=== PATIENT | male | born 1985 | race Caucasian/White ===

== ENCOUNTER 2016-11-17 23:07 | Inpatient (IN) | payer OTHER ==
[~2016-11-17] VITALS: Ht 175.3 cm; Wt 72.8 kg
[~2016-11-17 23:07] MED LIST: IBUP800T28 PO
[2016-11-17 23:29] VITALS: BP 102/64; PULSE 133; RESP 20; O2SAT 100
--- NOTE | 2016-11-17 23:40 | ED.REPORT ---
HPI-General Illness Date of Service Nov 17, 2016 ED Provider: Dr. Kristofer Swanson M.D. A 30 year old male with a history of abscess, cellulitis, and IV heroin use presents to the ED with an abscess to his right hand onset more than a week ago. Today the patient split open the abscess by accidentally hitting his hand against a couch, draining a large amount of pus. The patient's right hand is now swollen and erythematous. He admits to injecting heroin in the affected region just prior to onset of the symptoms. The patient also reports weakness, fever, and chills. He denies nausea, vomiting, or other wounds. Nursing Notes Stated Complaint: R HAND ABSCESS Chief Complaint: Skin Rash/Abscess Nursing Notes Reviewed: Yes Allergies: Coded Allergies: No Known Allergies (Verified Allergy, Unknown, 08/25/16) Scheduled PRN Ibuprofen (Ibuprofen) 800 Mg Tablet 800 MG PO QID PRN PRN For Pain General Time Seen by MD: 23:40 Chief Complaint Other (Abscess) Hx Obtained From: Patient Arrived By: Walk-in Sudden in Onset?: Yes Onset Occurred: More than a week ago... Symptom Duration: Since onset Location: : Hand right Quality: Painful Severity: Current: Moderate Severity: Maximum: Moderate Associated with: Reports: Fever, Denies: Nausea, Vomiting Pertinent Negative: Relieved by nothing Context Related History: Reports Drug use/abuse suspected Recent Healthcare: No recent doctor visit Past Medical History Past Medical History Abscess Cellulitis Past Surgical History Negative Smoking History Current Every Day Smoker Social History Alcohol Use: "Social" Drug Use: IV drugs (Heroin), THC Other Social History: Good social support Ambulatory Status Independent Review of Systems + Right hand abscess, right hand erythema Full Review of Systems Constitutional: Reports: Chills, Fever (37.6 in ED), Weakness - generalized Respiratory: Denies: Non-productive cough, Shortness of breath GI: Denies: Nausea, Vomiting Musculoskeletal: Reports: Extremity pain (Right hand), Extremity swelling ( Right hand) Complete sys rev & neg: except as marked. Physical Exam Vital Signs Vital Signs Date Time Temp Pulse Resp B/P Pulse Ox O2 Delivery O2 Flow Rate FiO2 11/17/16 23:29 37.6 133 20 102/64 100 Room Air Initial VS: Reviewed Head / Eyes: Atraumatic, Normocephalic ENT: Conjunctiva normal, No scleral icterus Neurologic: Alert, Oriented, Nonfocal Psychiatric: Mood/affect normal, Behavior normal, Normal thought content General/Constitutional: Awake, Alert, No acute distress Behavior: Positive: Tearful Respiratory / Chest: Breath sounds NL, Breath sounds = bilat, No respiratory distress Cardiovascular: Regular rhythm, Heart sounds NL, No murmurs Heart Rate / Rhythm: Positive: Tachycardia Right Hand: Positive: Erythema present, Swelling present... Skin: Warm, Dry Abscess Notes: Abscess on dorsal aspect of right hand with surrounding erythema and 1cm circular ulcer draining purulent and bloody material Markings to arms consistent with IV drug use Interpretation & Diagnostics Lab Results Interpretation Result Diagram: 11/18/16 0008 11/18/16 000 Test 11/17/16 00:08 11/18/16 00:08 Prothrombin Time 11.9sec (8.1-12.5) Prothromb Time International Ratio 1.11ratio Activated Partial Thromboplast Time 37.1sec (22.8-33.0) White Blood Count 25.5th/mm3 (3.8-10.1) Red Blood Count 4.93mil/mm3 (4.40-5.80) Hemoglobin 13.9g/dL (13.8-17.2) Hematocrit 40.7% (41.0-50.0) Mean Corpuscular Volume 82.6fL (81-100) Mean Corpuscular Hemoglobin 28.2pg (27.0-35.0) Mean Corpuscular Hemoglobin Concent 34.2% (32.0-37.0) Red Cell Distribution Width 14.3% (12.3-15.4) Platelet Count 225bil/L (150-400) Neutrophils (%) (Auto) 91.7% (40-74) Lymphocytes (%) (Auto) 2.9% (14-46) Monocytes (%) (Auto) 3.1% (4-12) Eosinophils (%) (Auto) 1.6% (0-5) Basophils (%) (Auto) 0.2% (0-3) Erythrocyte Sedimentation Rate 9mm/hr (0-15) Sodium Level 134mEq/L (134-144) Potassium Level 4.5mEq/L (3.5-5.2) Chloride Level 96mEq/L (97-108) Carbon Dioxide Level 23mmol/L (18-29) Blood Urea Nitrogen 14mg/dL (6-20) Creatinine 0.66mg/dL (0.76-1.27) Estimat Glomerular Filtration Rate 152mL/min (>59) Glucose Level 128mg/dL (60-99) Calcium Level 9.5mg/dL (8.5-10.1) Phosphorus Level 2.9mg/dL (2.5-4.9) Magnesium Level 1.6mg/dL (1.6-2.6) Total Bilirubin 0.7mg/dL (0.0-1.2) Aspartate Amino Transf (AST/SGOT) 28U/L (0-50) Alanine Aminotransferase (ALT/SGPT) 52U/L (0-44) Alkaline Phosphatase 92U/L (25-150) Troponin T 0.010ug/L (0.0-0.011) Pro-B-Type Natriuretic Peptide 383.1pg/mL (0-86) Total Protein 7.2g/dL (6.4-8.4) Albumin 3.7g/dL (3.4-5.0) Lipase 28U/L (13-60) Procalcitonin 0.65ng/mL (0.00-0.08) X-Ray Chest Interpretation Chest Xray Interpretation: Nothing acute View: Portable, 1 view Interpretation / Wet Read by: Wet read ED physician Re-Eval/Medical Decision Med Decision/Clinical Course 30-year-old heroin addict presents with tachycardia erythema or purulent discharge from abscess on his hands. He has sepsis by criteria. Cultures obtained and skin spectrum antibiotics begun. Admitted now for surgical evaluation this morning and ongoing antibiotics. Time of Eval: 00:00 Patient Status: Condition improved Re-Evaluation/Progress Note: Discussed with patient lab results, diagnosis, and plan for admit. Patient agrees with plan for care and all questions were addressed. Consultation : Referral / Consult Name: Martin Everett MD Consulted With: Hospitalist Call Returned at: 01:44 Dump Attendant: Agrees with eval, Agrees with plan, Accepts admit Discharge & Departure Shift Change Sign-Out Response to Therapy: Improved Primary Impression: Abscess of right hand Additional Impressions: Sepsis Sepsis type: sepsis due to unspecified organism Qualified Code: A41.9 - Sepsis, unspecified organism Intravenous drug abuse Disposition: ADMITTED TO HOSPITAL Discharge Condition All VS Reviewed: Yes Condition: Improved Referrals: NOPCP (PCP) Karanibshereen Attestation Portions of this note were transcribed by Nena Terry. I, Dr. Swanson, personally performed the history, physical exam, and medical decision-making; I reviewed and confirmed the accuracy of the information in the transcribed note. Signed by: Ronaldo Hastings, 11/18/2016, 04:30 Kristofer Swanson MD Nov 17, 2016 23:40 NENA TERRY Nov 18, 2016 01:02
[2016-11-18] VITALS (12 sets, daily range): BP systolic 94–117; BP diastolic 49–69; PULSE 98–120; RESP 14–22; O2SAT 96–100
[2016-11-18 00:22] LABS: Mean Corpuscular Volume 82.6 fL (81-100)
[2016-11-18 00:24] LABS: BASOPHILS % (AUTO) 0.2 % (0-3); EOSINOPHILS % (AUTO) 1.6 % (0-5); MONOCYTES % (AUTO) 3.1 % (4-12); Mean Corpuscular Hemoglobin 28.2 pg (27.0-35.0); NEUTROPHILS % (AUTO) 91.7 % (40-74); Platelet Count 225 bil/L (150-400)
[2016-11-18 00:37] LABS: INR 1.11 ratio
[2016-11-18 00:43] LABS: ERYTHROCYTE SEDIMENTATION RATE 9 mm/hr (0-15)
[2016-11-18] MEDS ORDERED: Piperacillin-Tazo 3.375 Gm Inj 3.375 GM in Dextrose 5% Minibag Plus 50 ML IV ONE (00:55)
[2016-11-18] MEDS ORDERED: oxyCODONE-Acetamin 5-325 mg Tablet PO ONE (01:00)
[2016-11-18 01:08] LABS: Magnesium 1.6 mg/dL (1.6-2.6); Phosphorus 2.9 mg/dL (2.5-4.9)
[2016-11-18] MEDS ORDERED: Vancomycin Inj 1,250 MG in 0.9% Sodium Chloride 250 ML IV ONE (01:12)
[2016-11-18] MEDS ORDERED: 0.9% Sodium Chloride 1,000 ML IV SCH (03:08)
[2016-11-18] MEDS ORDERED: Polyethylene Glycol (PEG) 17 Gm Powder PO PRN (03:10)
[2016-11-18] MEDS ORDERED: Ondansetron 2 mg/mL 2 mL Inj IVPUSH PRN (03:10)
[2016-11-18] MEDS ORDERED: HYDROmorphone 0.5 mg/0.5 mL iSecure Syringe IVPUSH PRN (03:10)
[2016-11-18] MEDS ORDERED: Alum-Mag Hydrox-Simeth 30 mL Suspension PO PRN (03:10)
--- NOTE | 2016-11-18 03:43 | PCM.CONPHA ---
Subjective Date of Service: Nov 18, 2016 Reason for Pharmacy Consult: Vancomycin Dosing Objective Vital Signs Date Time Temp Pulse Resp B/P Pulse Ox O2 Delivery O2 Flow Rate FiO2 11/17/16 23:29 37.6 133 20 102/64 100 Room Air Weight (Kilograms): 68 Height (Feet): 5 Height (Inches): 9 Test 11/17/16 00:08 11/18/16 00:08 Prothrombin Time 11.9sec (8.1-12.5) Prothromb Time International Ratio 1.11ratio Activated Partial Thromboplast Time 37.1sec (22.8-33.0) White Blood Count 25.5th/mm3 (3.8-10.1) Red Blood Count 4.93mil/mm3 (4.40-5.80) Hemoglobin 13.9g/dL (13.8-17.2) Hematocrit 40.7% (41.0-50.0) Mean Corpuscular Volume 82.6fL (81-100) Mean Corpuscular Hemoglobin 28.2pg (27.0-35.0) Mean Corpuscular Hemoglobin Concent 34.2% (32.0-37.0) Red Cell Distribution Width 14.3% (12.3-15.4) Platelet Count 225bil/L (150-400) Neutrophils (%) (Auto) 91.7% (40-74) Lymphocytes (%) (Auto) 2.9% (14-46) Monocytes (%) (Auto) 3.1% (4-12) Eosinophils (%) (Auto) 1.6% (0-5) Basophils (%) (Auto) 0.2% (0-3) Erythrocyte Sedimentation Rate 9mm/hr (0-15) Sodium Level 134mEq/L (134-144) Potassium Level 4.5mEq/L (3.5-5.2) Chloride Level 96mEq/L (97-108) Carbon Dioxide Level 23mmol/L (18-29) Blood Urea Nitrogen 14mg/dL (6-20) Creatinine 0.66mg/dL (0.76-1.27) Estimat Glomerular Filtration Rate 152mL/min (>59) Glucose Level 128mg/dL (60-99) Lactic Acid Level 2.7mmol/L (0.4-2.0) Calcium Level 9.5mg/dL (8.5-10.1) Phosphorus Level 2.9mg/dL (2.5-4.9) Magnesium Level 1.6mg/dL (1.6-2.6) Total Bilirubin 0.7mg/dL (0.0-1.2) Aspartate Amino Transf (AST/SGOT) 28U/L (0-50) Alanine Aminotransferase (ALT/SGPT) 52U/L (0-44) Alkaline Phosphatase 92U/L (25-150) Pro-B-Type Natriuretic Peptide 383.1pg/mL (0-86) Total Protein 7.2g/dL (6.4-8.4) Albumin 3.7g/dL (3.4-5.0) Lipase 28U/L (13-60) Procalcitonin 0.65ng/mL (0.00-0.08) Assessment/Plan Assessment/Plan Vancomycin dosing per pharmacy Indication: abscess, sepsis, IVDU Trough goal: 15-20 Labs: SCr: 0.66 (CrCl > 150 mL/min) Patient received vancomycin 1250 mg x1 in the ED. Give vancomycin 1500 mg Q8H. Will time 2nd dose of vancomycin to start ~5 hours after 1st dose to act as "loading dose". Vancomycin trough has been ordered for 11/18/16 at 2230. Pharmacy to continue to monitor daily and dose vancomycin. Thank you, Jeremie Bryan Pharmacist Jeremie Bryan Nov 18, 2016 03:43
[2016-11-18 04:10] LABS: APPEARANCE,URINE CLEAR (CLEAR,HAZY); COLOR,URINE DARK YELLOW (YELLOW); OCCULT BLOOD,URINE NEGATIVE (NEGATIVE); PH,URINE 5.5 (5.0-8.0); UROBILINOGEN,URINE NORMAL (NORMAL)
[2016-11-18] MEDS: 0.9% Sodium Chloride 1,000 ML IV SCH ×3 (04:10→22:00)
--- NOTE | 2016-11-18 04:47 | PCM.HPMED ---
Subjective Date of Service Nov 18, 2016 Primary Provider: Admitting Physician: Martin Everett MD Primary Care Physician: D[place]ne Attending Physician: Martin Everett MD Admit Status: From the Emergency Department Chief Complaint: Right hand abscess History of Present Illness: 30-year-old male patient with a history of IV drug abuse presented to the ER with complaint of right hand abscess for the past 1 week. Patient reports that one week ago he injected heroin into his right hand, and that soon after he noticed an abscess. He states that he bumped his hand against a table and the abscess broke open with copious amounts of purulent discharge. Patient reports that the pain and redness have been worsening since onset. Patient denies any other areas of abscess or infection. Patient reports he has been experiencing fevers, chills, diaphoresis. Patient denies any nausea, vomiting, diarrhea. Patient states that he last used heroin at 10 AM on Wednesday morning. Patient reports that he has a history of abscesses secondary to his IV drug use, as well as cellulitis. Patient denies skin popping but does report that he occasionally licks the needle prior to injecting heroin. In the ER patient had a temperature 37.6, pulse 133 ,respiratory rate 20 ,blood pressure 102/64 , pulse [id number] room air Review of Systems: A comprehensive review of systems was conducted with the patient and found to be negative except as above in the History of Present Illness. Allergies Coded Allergies: No Known Allergies (Verified Allergy, Unknown, 08/25/16) Home Medications Reports none PMH Substance abuse Surgical History Reports none Family History Reports none Social History Hx Alcohol Use: Yes Hx Substance Use: Yes (IV heroin) Hx Tobacco Use: Yes (pack daily) Smoking Status: Current Every Day Smoker Exam Vital Signs Vital Sign - Last Date Time Temp Pulse Resp B/P Pulse Ox O2 Delivery O2 Flow Rate FiO2 11/18/16 04:04 36.7 120 14 110/64 97 Room Air Intake and Output 11/17/16 11/17/16 11/18/16 Cumulative From/Thru 15:00 23:00 07:00 11/17/16 23:29 - 11/18/16 04:13 Intake Total 2300 ml 2300 ml Balance 2300 ml 2300 ml Intake IV Total 2300 ml 2300 ml Exam General: Somnolent. Uncomfortable.Well-developed, well-nourished. Poor hygiene HEENT: Normocephalic, atraumatic. External ears without defect. Pupils equal, round, and reactive to light and accommodation. Moist conjunctivae. Oropharynx with moist mucosa. Neck: Supple with full range of motion.No lymphadenopathy Cardiovascular: Systolic murmur auscultated,Tachycardic, regular rhythm, no rubs , or gallops appreciated Pulmonary: Clear to auscultation bilaterally with no crackles, wheezes, or rhonchi. Normal respiratory effort with no use of accessory muscles. Abdomen: Bowel tones present. Soft, nontender, nondistended. Extremities: Right hand with the area of erythema, edema. Left hand also with some edema. Evidence of previous abscesses wounds along upper extremities in various stages of healing. Fingernails covered in dirt. Skin: Slightly diaphoretic Psychiatric: Patient is very somnolent and responds only to some questions .Alert and oriented to person, place, and time. Lab and Diagnostics Result Diagram: 11/18/16711/18/167 X-Rays, CTs and MRIs Chest x-ray-no formal radiology report available Assessment & Plan 30-year-old male patient with a history of IV drug abuse presented with acute sepsis secondary to right hand abscess. Acute sepsis secondary to right hand abscess, present on admission, ongoing -Patient meets criteria with temperature 37.6, heart rate 133, white count 25.5 -Treatment as below Acute soft tissue infection of the right hand secondary to abscess, present on admission, ongoing -Patient has soft tissue infection secondary to puncture wound from IV drug abuse. -In ER patient started on vancomycin and Zosyn, we will continue with these medications -Patient has leukocytosis 25.5, with neutrophils 91.7% -Patient has a lactic acid of 2.7, we will trend his every 2 hours until normalized -IVF NS 125mls/hr -Pro calcitonin 0.65 -Pain medication available -We will consult placed for evaluation of right hand wound -Blood cultures pending -MRSA screen pending -Consider echo given concern for endocarditis with systolic murmur auscultated and history of IV drug abuse Substance abuse, present on admission, ongoing -Patient reports history of IV drug abuse, heroin -We will treat patient's symptoms of withdrawal as they appear -Social work referral recommended to assist patient in getting in touch with resources for his substance abuse -Hepatitis C and HIV testing ordered Tobacco use disorder present on admission, ongoing -Nicotine patch made available to the patient -Discussed smoking cessation with patient Pain Evaluation: Adequate Pain Control VTE Prophylaxis: Sub-Q Heparin (Unfractionated) Resuscitation Status: CPR: Attempt Resuscitation Attending Statement The patient was seen and examined together with Dr. Oh on 11/18 and I agree with the history, exam and plan as outlined in the note above. Suha Oh DO Nov 18, 2016 04:47 Martin Everett MD Nov 18, 2016 19:43
--- NOTE | 2016-11-18 06:39 | NUR ---
ADMIT Pt arrived on unit #[id number] from ED via stretcher with all personal belongings at apprx 0400. Transferred self to bed. VSS. Tele: SinusTach 100-120's. Generalized pain 12/04. Oriented to unit, hospital policy and call light. Right hand abscess bandaged in ED, C/D/I. Home medication list completed. No known allergies. Bed locked, low position. Call light within reach. Pleasant and cooperative with care.
[2016-11-18] MEDS: Vancomycin Inj 1,500 MG in 0.9% Sodium Chloride 500 ML IV SCH ×2 (07:31→15:23)
[2016-11-18] MEDS: Vancomycin Dose per Pharmacist XX SCH (08:30)
[2016-11-18] MEDS: Sodium Chloride LOK Flush 10 mL Syringe IVFLUSH SCH ×2 (09:00→18:14)
[2016-11-18] MEDS: Heparin 5,000 Unit/mL Inj SUBQ SCH ×2 (09:01→17:21)
--- NOTE | 2016-11-18 10:01 | DRSVH ---
PROCEDURE: X-RAY CHEST ONE VIEW, PORTABLE ([id number]) INDICATIONS: fever, tachycardia TECHNIQUE: One view of the chest was acquired. COMPARISON: None. FINDINGS: Surgical changes and devices: None. Lungs and pleura: No pleural effusions or pneumothorax. Lungs are clear. Mediastinum: Mediastinal contours appear normal. Heart size is normal. Bones and chest wall: No suspicious bony lesions. Overlying soft tissues appear unremarkable. IMPRESSION: No acute cardiopulmonary disease. Dictated by: Sg Rosado [facility] Interpreted: Jose Nelson MD on 11/18/2016 at 10:00 Transcribed by: LARRY on 11/18/2016 at 10:00 Approved by: Jose Nelson M.D. on 11/18/2016 at 17:45
[2016-11-18] MEDS: Piperacillin-Tazo 3.375 Gm Inj 3.375 GM in Dextrose 5% Minibag Plus 50 ML IV SCH ×2 (11:11→19:15)
--- NOTE | 2016-11-18 11:46 | PCM.PNMED ---
Subjective Date of Service Nov 18, 2016 Subjective Mr. Shook is a 30 year-old male with a decade-long history if IV heroin use who presented to the ER with complaint of right hand swelling, pain, purulent drainage that started 4 weeks ago. This is Day 1 He arrived on the floor at 04:00 this morning. He states that he is not feeling any better, if anything, he feels worse because he states that he is in withdrawal -- he "aches all over." Denies SOB, vomiting, headache but does feel nauseous. . Exam Vital Signs Vital Sign - Last Date Time Temp Pulse Resp B/P Pulse Ox O2 Delivery O2 Flow Rate FiO2 11/18/16 10:49 100 11/18/16 09:11 37.1 16 104/63 96 Room Air Intake and Output 11/17/16 11/17/16 11/18/16 Cumulative From/Thru 15:00 23:00 07:00 11/17/16 23:29 - 11/18/16 06:45 Intake Total 2300 ml 2300 ml Output Total 450 ml 450 ml Balance 1850 ml 1850 ml Intake Oral 0 ml 0 ml IV Total 2300 ml 2300 ml Output Urine Total 450 ml 450 ml # Bowel Movements 0 0 Exam General: alert, appears ill Eyes: EOMI Mouth: mucous membranes moist/pink Neck: supple, no thyromegaly Chest & Lungs: clear to auscultation, no adventitious breath sounds, no crackles , no wheeze Cardiovascular: Grade I diastolic murmur left sternal base Pulses: dorsalis Pedi (present and equal) Abdomen: soft, normoactive bowel tones Musculoskeletal: Right hand is erythematous, edematous, tender to palpation, with a puncture on dorsum of hand between 1st and 2nd metacarpal bones which is draining purulent liquid Extremities: no clubbing Skin: No rashes Neurological: Normal speech . IVs and Medications Medications Reviewed: Medications were reviewed in detail Lab and Diagnostics Result Diagram: 11/18/16711/18/167 X-Rays, CTs and MRIs Date of Service: 11/17/16 X-RAY CHEST ONE VIEW, PORTABLE IMPRESSION: No acute cardiopulmonary disease. Dictated by: Sg ALEMAN Interpreted: Jose Nelson MD on 11/18/2016 at 10: 00 Transcribed by: LARRY on 11/18/2016 at 10:00 Approved by: Jose Nelson M.D. on 11/18/2016 at 17:45 Date of Service: 11/18/16 X-RAY RIGHT HAND, MINIMUM THREE VIEWS IMPRESSION: 1. Dorsal soft tissue swelling and small metallic radiodense soft tissue foreign bodies involving the third and fourth digits. Dictated by: Sg Rosado RRA Interpreted: Aviva Jordan MD on 11/18/2016 at 13: 26 Transcribed by: LENA on 11/18/2016 at 13:27 Approved by: Aviva Jordan M.D. on 11/18/2016 at 16:45 . Assessment & Plan Mr. Shook is a 30 year-old male with a decade-long history if IV heroin use who presented to the ER with complaint of right hand swelling, pain, purulent drainage that started 4 weeks ago. This is Day 1 1. Acute sepsis secondary to right hand abscess, present on admission, Resolved -Patient meets criteria heart rate 133, white count 25.5 -Lactic acid of 2.7 now 1.3 -Initially IV NS at 125 ml/hr, now 80 ml/hr - Treat underlying condition - Labs ordered for am 2. Acute soft tissue infection of the right hand secondary to abscess, present on admission, ongoing -Patient has soft tissue infection secondary to puncture wound from IV drug abuse. -Patient is right-handed -In ER patient started on vancomycin and Zosyn, we will continue with these medications. Okay per Dr. Markham -Patient has leukocytosis 25.5, with neutrophils 91.7% -Patient has a lactic acid of 2.7, last was 1.3 -Pro calcitonin 0.65 -Pain medication available -Consulted Dr. Markham, plastic surgeon, who evaluated the wound and made recommendations. Appreciate his help Basically, wound to be soaked and have antibiotic ointment applied to keep from scabbing thereby preventing an abscess. Requested this from both nursing and also wound care to help. Dr. Markham will see the patient again tomorrow. -Blood cultures pending -MRSA screen pending -Echocardiogram has been completed, awaiting report -Hand x-ray showed Dorsal soft tissue swelling and small metallic radiodense soft tissue foreign bodies involving the third and fourth digits. 3. Substance abuse, present on admission, ongoing -Patient reports decade-long history of IV drug abuse, heroin -[employer]OL[employer] PROFESSIONAL and IV dilaudid for dressing changes -Social work referral recommended to assist patient in getting in touch with resources for his substance abuse -Hepatitis C and HIV testing pending 4. High risk medications - IV Dilaudid 5. Tobacco use disorder present on admission, ongoing -Nicotine patch available -Discussed smoking cessation with patient Expect discharge to home in 2-3 days . VTE Prophylaxis: Sub-Q Heparin (Unfractionated) Resuscitation Status: CPR: Attempt Resuscitation Attending Statement The patient was seen and examined together with Dr. Thomas on 11-18-16 and I agree with the history, exam and plan as outlined in the note above. Lenka Thomas DO Nov 18, 2016 11:46 Jaci Giles MD Nov 19, 2016 14:13
[2016-11-18] MEDS ORDERED: HYDROmorphone PCA 0.2 mg/mL 30 mL Inj IV ONE (12:48)
[2016-11-18] MEDS: HYDROmorphone PCA 0.2 mg/mL 30 mL Inj IV PRN ×2 (12:49→22:09)
--- NOTE | 2016-11-18 13:28 | DRSVH ---
PROCEDURE: X-RAY RIGHT HAND, MINIMUM THREE VIEWS ([id number]) INDICATIONS: Right hand abscess in IV heroin user TECHNIQUE: 3 views of the hand(s) acquired. COMPARISON: None. FINDINGS: Bones: No fractures or dislocations. Carpal bones are normally aligned. No suspicious bony lesions . Soft tissues: No suspicious soft tissue calcifications. Soft tissue foreign bodies involving the th ird digit adjacent to the middle phalanx and the 4 case and the patient to be base of the middle phal anx. Dorsal soft tissue swelling. IMPRESSION: 1. Dorsal soft tissue swelling and small metallic radiodense soft tissue foreign bodies involving the third and fourth digits. Dictated by: Sg ALEMAN Interpreted: Aviva Jordan MD on 11/18/2016 at 13:26 Transcribed by: LENA on 11/18/2016 at 13:27 Approved by: Aviva Jordan M.D. on 11/18/2016 at 16:45
--- NOTE | 2016-11-18 16:38 | CONS ---
[address] [address] CONSULTATION REPORT PATIENT: THERESA HARMON : 1985 MR#: [id number] ADMIT: 11/18/2016 JOB ID: [id number] DATE OF SERVICE: 11/18/2016 CONSULTING SERVICE: Hospitalist, internal medicine. BATCH FREEZER OPERATOR: Jr Markham MD, Plastic Surgery/Hand Surgery. CHIEF COMPLAINT: Right hand infection. HISTORY OF PRESENT ILLNESS: This is a 30-year-old male patient with history of IV drug injection with history of abscess and cellulitis who presented to the emergency department on November 17, 2016. The patient reported a 2-3 day history of right hand infection. This was confirmed by his father. Due to the severity of the infection, the patient was admitted for IV antibiotic therapy to the hospitalist service. I was consulted to evaluate the right hand. The patient reports that he feels about the same today as yesterday. The patient reports right hand pain. PAST MEDICAL HISTORY: IV drug abuse with history of abscess and cellulitis. PAST SURGICAL HISTORY: None. FAMILY HISTORY: Noncontributory. SOCIAL HISTORY: The patient is a smoker. The patient also admits to IV drug use. The patient also reports alcohol use. REVIEW OF SYSTEMS: Other than above negative. PHYSICAL EXAMINATION: The patient is awake and slightly somnolent. The patient reports right hand pain. Focused right hand examination reveals a wound at the dorsum of the right hand over the index finger ray, just proximal to the metacarpophalangeal joint. The wound is approximately 2-3 mm. There is a small amount of purulence. Probing of this wound reveals minimal undermining. The patient has swelling and erythema of the hand from approximately the proximal phalangeal joint down to the proximal dorsum of the hand. The patient has normoactive flexion. Passive extension did not elicit significant pain. ASSESSMENT AND PLAN: This is a patient with a right hand infection. The patient predominantly has cellulitis of this area. The patient likely had a small abscess that spontaneously drained. At this point, he is to allow the wound to continue to drain without scabbing over or clotting over. Clotting over and scabbing of the wound will likely result in an abscess. At this point I do not recommend any surgical debridement. The patient is to continue IV antibiotics. I would also recommend that the wound be soaked or to have warm compress over the wound every 6 hours. In between warm compress the wound is to be dressed with antibiotic ointment followed by a nonadherent dressing. I will continue to follow the patient as an inpatient.
--- NOTE | 2016-11-18 17:49 | NUR ---
Wound Wound evaluation order received. A 30 year old male with a history of abscess, cellulitis, and IV heroin use presents to the ED with an abscess to his right hand onset more than a week ago. Today the patient split open the abscess by accidentally hitting his hand against a couch, draining a large amount of pus. Dressing removed, small opening at the webspace of his thumb and second finger, has 70% flexion of the 2nd finger. Hand is generally swollen and erythematous. Recommend ortho consult for I&D of this abscess if necessary.
--- NOTE | 2016-11-18 17:50 | NUR ---
Behavior contract Pt's mother arrived at hospital with a security police this evening at 1740. According to mother, pt had visitors earlier and after they left, mother found what she believed to be Heroin in his belongings and called the police. Police arrived and removed a substance in a bag. Per mother, she wants to be notified when pt dc's and provided phone number (Monisha Asif [phone]) so that pt can be arrested upon discharge. Discussed with mother HIPAA and how that prevents staff from providing that information. Mother reported understanding. Spoke with pt re: behavior contract and limited visitors due to drug being found. Pt stated he did not do any drugs, he did not know that they were brought in and "they didn't mean to bring it in." Belongings locked up in closet by security, pt signed contract without issue and limited visitors sign placed at door.
--- NOTE | 2016-11-18 18:37 | NUR ---
R hand/pain Soaked R hand in warm, soapy water per MD order then wrapped with Vaseline, Telfa and a Kerlix wrap. Pt tolerated well. 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 Currently sitting up EOB, eating dinner and talking with mother. Bed in lowest, locked position and call light in reach.
[2016-11-18] MEDS ORDERED: Vancomycin Serum Trough XX ONE (22:30)
[2016-11-19] VITALS (10 sets, daily range): BP systolic 109–132; BP diastolic 62–81; PULSE 80–97; RESP 16–22; O2SAT 96–100
[2016-11-19] MEDS: Sodium Chloride LOK Flush 10 mL Syringe IVFLUSH SCH ×3 (00:30→16:30)
--- NOTE | 2016-11-19 01:26 | PCM.PHAPRO ---
Progress Date of Service: Nov 19, 2016 Right hand abscess Vancomycin dosing per pharmacy Indication: abscess, sepsis, IVDU Trough goal: 15-20 Trough on 11/18 @2230: 12.1 Trough is sub-therapeutic. Increase vancomycin to 1750 mg Q8H. Next trough scheduled for 11/20/16 @0100. Pharmacy to continue to monitor and dose vancomycin. Thank you, Jeremie Bryan Pharmacist Jeremie Bryan Nov 19, 2016 01:26
[2016-11-19] MEDS: Vancomycin Inj 1,750 MG in 0.9% Sodium Chloride 500 ML IV SCH ×2 (01:39→07:27)
[2016-11-19] MEDS: Heparin 5,000 Unit/mL Inj SUBQ SCH ×3 (01:40→17:18)
[2016-11-19] MEDS: Piperacillin-Tazo 3.375 Gm Inj 3.375 GM in Dextrose 5% Minibag Plus 50 ML IV SCH ×2 (04:07→10:57)
[2016-11-19] MEDS: HYDROmorphone PCA 0.2 mg/mL 30 mL Inj IV PRN ×2 (05:03→10:56)
--- NOTE | 2016-11-19 05:37 | NUR ---
Uneventful Night: Pt rested through the night with no complaints of pain or discomfort. Denies SOB, n/v. Generalized weakness, SBA to BRP. Skid resistant socks on for safety. Right hand drsg c/d/i. Call light within reach, using appropriately. Pleasant and cooperative with care.
[2016-11-19] MEDS ORDERED: HYDROmorphone 0.5 mg/0.5 mL iSecure Syringe IVPUSH PRN (07:10)
[2016-11-19] MEDS: Vancomycin Dose per Pharmacist XX SCH (08:30)
[2016-11-19 08:56] LABS: BASOPHILS % (AUTO) 0.1 % (0-3); EOSINOPHILS % (AUTO) 3.4 % (0-5); MONOCYTES % (AUTO) 5.5 % (4-12); Mean Corpuscular Hemoglobin 27.7 pg (27.0-35.0); Mean Corpuscular Volume 84.6 fL (81-100); NEUTROPHILS % (AUTO) 72.8 % (40-74); Platelet Count 180 bil/L (150-400)
[2016-11-19] MEDS: NEOMY/BACITRA/POLYMYX OINT 1 PACKET/0.9 GM PACKET TOPICAL SCH ×4 (09:10→16:30)
--- NOTE | 2016-11-19 11:59 | DRSVH ---
[facility] [address] [place] [address] Echocardiogram Report Name: THERESA HARMON JStudy Date: 11/18/2016 Height: 69 in Hospital Exam Location: [facility] Weight: 159 lb Gender: Male BSA: 1.9 m2 : 1985 Age: 30 yrs BP: 104/63 mmHg Reason For Study: IV DRUG USE, MURMUR Ordering Physician: HOSPITALIST [facility] Performed By: Blade Levin Referring Physician: KATIE LIVE Interpretation Summary 1) Normal left ventricular thickness, size, wall motion, and systolic function (EF 60-65%). 2) Normal right ventricular size and function. 3) No significant valvular abnormalities. No valvular vegetations seen. 4) No prior Echo available for comparison. If there is clinical suspicion for endocarditis, consider YURY. Procedure: A two-dimensional transthoracic echocardiogram with color flow and Doppler was performed. The study quality was technically good. There is no prior echocardiogram noted for this patient. The patient was in sinus tachycardia with heart rates between 94-106 bpm during the exam. Left Ventricle: The left ventricle is normal in size, wall thickness, and systolic function without any focal wall motion abnormalities. The ejection fraction is estimated to be 60-65%. Left ventricular wall motion is normal. Diastolic function could not be accurately assessed due to tachycardia. Right Ventricle: The right ventricle is normal in size and function. Atria: Both atria are normal in size. The interatrial septum is intact with no evidence for an atrial septal defect. Mitral Valve: The mitral valve is normal. There is trace mitral regurgitation. Aortic Valve: The aortic valve is normal in structure and function. There is no aortic valve stenosis. No aortic regurgitation is present. Tricuspid Valve: The tricuspid valve is normal. There is a trace or physiologic amount of tricuspid regurgitation. Pulmonic Valve: The pulmonic valve leaflets are thin and pliable; valve motion is normal. There is a trace or physiologic amount of pulmonic regurgitation. Great Vessels: The aortic root is normal size. The dimensions of the ascending aorta are normal. The pulmonary artery is normal size. The IVC is of normal diameter and collapses greater than 50% with a sniff. This suggests a low right atrial pressure of 3 mm Hg. Pericardium/ Pleura There is no pericardial effusion. There is no pleural effusion. MMode/2D Measurements & Calculations LVIDd: 4.7 cm RA long axis LVOT diam: 2.2 cm LVIDs: 2.9 cm LA A2 area: 15.1 cm AoV Opening FS: 38.4 % LA A4 area: 20.4 cm RA area EPSS: 0.55 cm LA length (vol) Ao root diam IVSd: 0.78 cm : 17.1 cm LVPWd: 0.98 cm LA vol: 52.1 ml RA vol asc Aorta Diam LA vol index : 50.7 ml RA Ao Arch Diam (Prox : 27.1 mm2 Trans): 2.6 cm IVC diam: 1.7 cm LV oliva. diameter/BSA LV sys. diameter/BSA RVD1 (basal) TAPSE: 2.1 cm (cm/m^2): 2.5 (cm/m^2): 1.5 Doppler Measurements & Calculations Ao V2 max MVA(VTI) TR max americo MV V2 mean: 70.5 cm/sec : 141.4 cm/sec : 228.1 cm/sec MV mean P.1 mmHg Ao max P.0 mmH.9 cm2 TR max PG MV V2 VTI: 17.2 cm Ao mean PG : 20.8 mmHg PA V2 max LVOT Max Americo : 89.6 cm/sec : 106.4 cm/sec PA mean PG : 1.9 mmHg COREEN(I,D): 2.7 cm sev ratio: 0.72 Ao V2 mean LV V1 max PG PA V2 mean COREEN indexed to BSA : 98.5 cm/sec : 65.8 cm/sec (cm^2/m^2): 1.4 Ao V2 VTI: 25.1 cm LV V1 VTI COREEN(V,D): 2.8 cm2 : 18.0 cm Reading Physician:03:11 PM
[2016-11-19] MEDS ORDERED: HYDROmorphone 1 mg/mL Inj IVPUSH PRN (14:00)
[2016-11-19] MEDS: 0.9% Sodium Chloride 1,000 ML IV SCH (14:57)
--- NOTE | 2016-11-19 17:12 | NUR ---
Wound Care Pt seen at bedside, pt and mother instructed in wound care and dressing changes in anticipation of discharge. Wound at right hand cleaned with saline and gauze then redressed with adaptic and conform wrap. Pt to change daily, supplies left in room for home use. No follow up needed at wound center.
--- NOTE | 2016-11-19 17:19 | PCM.PNMED ---
Subjective Date of Service Nov 19, 2016 Subjective Mr. 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 This is Day 2 This morning patient states that he is feeling better and his withdrawal symptoms (nausea) have lessened. His right hand hurts but denies chills, chest pain, lower leg pain, dizziness, vomiting. He is sitting up in bed and eating breakfast when I saw him. He says that his hand has been soaked several times with antibacterial ointment applied after. . Exam Vital Signs Vital Sign - Last Date Time Temp Pulse Resp B/P Pulse Ox O2 Delivery O2 Flow Rate FiO2 11/19/16 15:33 20 100 11/19/16 14:50 37.1 91 116/74 Room Air Intake and Output 11/18/16 11/18/16 11/19/16 Cumulative From/Thru 15:00 23:00 07:00 11/17/16 23:29 - 11/19/16 05:56 Intake Total 2301 ml 1283 ml 5884 ml Output Total 450 ml Balance 2301 ml 1283 ml 5434 ml Intake Oral 556 ml 556 ml IV Total 1745 ml 1283 ml 5328 ml Output Urine Total 450 ml # Voids 2 2 # Bowel Movements 0 0 Exam General: alert, no acute distress Eyes: EOMI, PERRL Mouth: mucous membranes moist/pink Neck: supple, no thyromegaly or lymphadenopathy Chest & Lungs: clear to auscultation, no adventitious breath sounds, no crackles , no wheeze Cardiovascular: regular rate and rhythm, no murmurs appreciated Pulses: dorsalis Pedi and radial pulses (present and equal) Abdomen: soft, normoactive bowel tones Musculoskeletal: Right hand is wrapped. Dressing is clean and dry Extremities: no clubbing Skin: No rashes Neurological: Normal speech IVs and Medications Medications Reviewed: Medications were reviewed in detail Lab and Diagnostics Result Diagram: 11/19/1683411/[id number]/16834 X-Rays, CTs and MRIs Date of Service: 11/17/16 X-RAY CHEST ONE VIEW, PORTABLE IMPRESSION: No acute cardiopulmonary disease. Dictated by: Sg ALEMAN Interpreted: Jose Nelson MD on 11/18/2016 at 10: 00 Transcribed by: LARRY on 11/18/2016 at 10:00 Approved by: Jose Nelson M.D. on 11/18/2016 at 17:45 Date of Service: 11/18/16 X-RAY RIGHT HAND, MINIMUM THREE VIEWS IMPRESSION: 1. Dorsal soft tissue swelling and small metallic radiodense soft tissue foreign bodies involving the third and fourth digits. Dictated by: Sg Rosado RR Interpreted: Aviva Jordan MD on 11/18/2016 at 13: 26 Transcribed by: LENA on 11/18/2016 at 13:27 Approved by: Aviva Jordan M.D. on 11/18/2016 at 16:45 . Cardiac Echo Impressions Echocardiogram Report 11/18/2016 Interpretation Summary 1) Normal left ventricular thickness, size, wall motion, and systolic function (EF 60-65%). 2) Normal right ventricular size and function. 3) No significant valvular abnormalities. No valvular vegetations seen. 4) No prior Echo available for comparison. If there is clinical suspicion for endocarditis, consider YURY. . Assessment & Plan Mr. 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 This is Day 2 1. Acute sepsis secondary to right hand abscess, present on admission, Resolved -Patient met criteria heart rate 133, white count 25.5 -Lactic acid of 2.7 now 1.3 -Initially IV NS at 125 ml/hr, stopped - Treat underlying condition 2. Acute soft tissue infection of the right hand secondary to abscess, present on admission, ongoing -Patient has soft tissue infection secondary to puncture wound from IV drug abuse. -Patient is right-handed -In ER patient started on vancomycin and Zosyn. Vancomycin stopped when MRSA negative. Will stop Zosyn and give one dose of Dalbavancin 1.5g prior to discharge. -Patient had leukocytosis 25.5, with neutrophils 91.7% -Patient had a lactic acid of 2.7, last was 1.3 -Pro calcitonin 0.65 -Pain medication available. -Consulted Dr. Markham, plastic surgeon, who evaluated the wound on 11/18/16 and made recommendations. Appreciate his help. Basically, wound to be soaked and have antibiotic ointment applied to keep from scabbing thereby preventing an abscess. Requested this from both nursing and also wound care for help. -Blood cultures no growth in 24 hours -MRSA screen pending -Echocardiogram normal with no vegitations -Hand x-ray showed Dorsal soft tissue swelling and small metallic radiodense soft tissue foreign bodies involving the third and fourth digits. 3. Substance abuse, present on admission, ongoing -Patient reports decade-long history of IV drug abuse, heroin -IV dilaudid for pain, dressing changes and withdrawal symptoms -Social work referral recommended to assist patient in getting in touch with resources for his substance abuse -Hepatitis C positive. Quant and genotyping ordered -HIV negative 4. High risk medications - IV Dilaudid 5. Tobacco use disorder present on admission, ongoing -Nicotine patch available -Discussed smoking cessation with patient Expect discharge to home 11/20/16 . VTE Prophylaxis: Sub-Q Heparin (Unfractionated) VTE Mechanical Devices: Venous Foot Pump Resuscitation Status: CPR: Attempt Resuscitation Attending Statement The patient was seen and examined together with Dr. Thomas on 11/19/2016 and I agree with the history, exam and plan as outlined in the note above. Lenka Thomas DO Nov 19, 2016 17:19 Duran Garcia MD Nov 20, 2016 13:23
[2016-11-19] MEDS ORDERED: Piperacillin-Tazo 3.375 Gm Inj 3.375 GM in Dextrose 5% Minibag Plus 50 ML IV ONE (18:00)
--- NOTE | 2016-11-19 18:02 | NUR ---
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 PRN IV analgesic given for pain management, effective thus far. Pt tolerating soaking of R hand Q6 hours and application of ointment and drsg change. Pt keeping R hand elevated on pillow. Pt up to a shower this afternoon, tolerated activity well. Remains pleasant and cooperative with all cares. Bed in lowest, locked position and call light in reach.
--- NOTE | 2016-11-19 20:07 | NUR ---
AMA Patient left AMA. Patient informed of the risks of leaving, BRET warren MD notified. Patient signed informed consent and he was escorted to the front door with security and personal belongings at 1999.
[2016-11-20] MEDS ORDERED: Vancomycin Serum Trough XX ONE (01:00)
[2016-11-20] MEDS ORDERED: Dalbavancin Inj 1,500 MG in Dextrose 5% 500 ML IV ONE (08:00)
--- NOTE | 2016-11-20 13:26 | PCM.DC.MED ---
Discharge Summary Date of Service Nov 20, 2016 Dates of Hospitalization Date of Hospital Admission Nov 18, 2016 at 01:40 Date of Discharge: Nov 19, 2016 Providers: Admitting Physician: Martin Everett MD Primary Care Physician: Nopcp Attending Physician: Martin Everett MD Diagnosis at Time of Discharge Diagnosis at Time of Discharge 1. Cellulitis of Right Hand 2. Heroin Abuse Consultations 1. Hand Surgery Procedures XRay, CTs & MRIs Date of Service: 11/17/16 X-RAY CHEST ONE VIEW, PORTABLE IMPRESSION: No acute cardiopulmonary disease. Dictated by: Sg ALEMAN Interpreted: Jose Nelson MD on 11/18/2016 at 10: 00 Transcribed by: LARRY on 11/18/2016 at 10:00 Approved by: Jose Nelson M.D. on 11/18/2016 at 17:45 Date of Service: 11/18/16 X-RAY RIGHT HAND, MINIMUM THREE VIEWS IMPRESSION: 1. Dorsal soft tissue swelling and small metallic radiodense soft tissue foreign bodies involving the third and fourth digits. Dictated by: Sg ALEMAN Interpreted: Aviva Jordan MD on 11/18/2016 at 13: 26 Transcribed by: LENA on 11/18/2016 at 13:27 Approved by: Aviva Jordan M.D. on 11/18/2016 at 16:45 . Cardiac Echo Impression Echocardiogram Report 11/18/2016 Interpretation Summary 1) Normal left ventricular thickness, size, wall motion, and systolic function (EF 60-65%). 2) Normal right ventricular size and function. 3) No significant valvular abnormalities. No valvular vegetations seen. 4) No prior Echo available for comparison. If there is clinical suspicion for endocarditis, consider YURY. . Brief History 30-year-old male patient with a history of IV drug abuse presented to the ER with complaint of right hand abscess for the past 1 week. Patient reports that one week ago he injected heroin into his right hand, and that soon after he noticed an abscess. He states that he bumped his hand against a table and the abscess broke open with copious amounts of purulent discharge. Patient reports that the pain and redness have been worsening since onset. Patient denies any other areas of abscess or infection. Patient reports he has been experiencing fevers, chills, diaphoresis. Patient denies any nausea, vomiting, diarrhea. Patient states that he last used heroin at 10 AM on Wednesday morning. Patient reports that he has a history of abscesses secondary to his IV drug use, as well as cellulitis. Patient denies skin popping but does report that he occasionally licks the needle prior to injecting heroin. In the ER patient had a temperature 37.6, pulse 133 ,respiratory rate 20 ,blood pressure 102/64 , pulse [id number]%on room air Hospital Course Mr. 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 This is Day 2 1. Acute sepsis secondary to right hand abscess, present on admission, Resolved -Patient met criteria heart rate 133, white count 25.5 -Lactic acid of 2.7 now 1.3 -Initially IV NS at 125 ml/hr, stopped - Resolved 2. Acute soft tissue infection of the right hand secondary to abscess, present on admission, ongoing -Patient has soft tissue infection secondary to puncture wound from IV drug abuse. -Patient is right-handed -In ER patient started on vancomycin and Zosyn. Vancomycin stopped when MRSA negative. Will stop Zosyn and give one dose of Dalbavancin 1.5g prior to discharge. -Patient had leukocytosis 25.5, with neutrophils 91.7% -Patient had a lactic acid of 2.7, last was 1.3 -Pro calcitonin 0.65 -Pain medication available. -Consulted Dr. Markham, plastic surgeon, who evaluated the wound on 11/18/16 and made recommendations. Appreciate his help. Basically, wound to be soaked and have antibiotic ointment applied to keep from scabbing thereby preventing an abscess. Requested this from both nursing and also wound care for help. -Blood cultures no growth in 24 hours -MRSA screen pending -Echocardiogram normal with no vegitations -Hand x-ray showed Dorsal soft tissue swelling and small metallic radiodense soft tissue foreign bodies involving the third and fourth digits. - Pt left hospital against medical advice on 11/19/2016 at 8pm, pt was advised on risks of leaving AMA including sepsis and - pt verbalized understanding of instructions given 3. Substance abuse, present on admission, ongoing -Patient reports decade-long history of IV drug abuse, heroin -IV dilaudid for pain, dressing changes and withdrawal symptoms -Social work referral recommended to assist patient in getting in touch with resources for his substance abuse -Hepatitis C positive. Quant and genotyping ordered -HIV negative 4. High risk medications - IV Dilaudid 5. Tobacco use disorder present on admission, ongoing -Nicotine patch available -Discussed smoking cessation with patient Pt left hospital AMA . Exam Vital Signs (Last) Date Time Temp Pulse Resp B/P Pulse Ox O2 Delivery O2 Flow Rate FiO2 11/19/16 19:38 36.8 97 18 132/81 99 Room Air Test 11/17/16 00:08 11/18/16 00:08 11/18/16 04:00 11/18/16 04:25 Prothrombin Time 11.9sec (8.1-12.5) Prothromb Time International Ratio 1.11ratio Activated Partial Thromboplast Time 37.1sec (22.8-33.0) Erythrocyte Sedimentation Rate 9mm/hr (0-15) Hemoglobin A1c 5.7% (4.8-5.6) Phosphorus Level 2.9mg/dL (2.5-4.9) Magnesium Level 1.6mg/dL (1.6-2.6) Troponin T 0.010ug/L (0.0-0.011) Pro-B-Type Natriuretic Peptide 383.1pg/mL (0-86) Lipase 28U/L (13-60) Urine Color Dark yellow (YELLOW) Urine Appearance Clear (CLEAR,HAZY) Urine pH 5.5 (5.0-8.0) Urine Specific Crockett <1.005 (1.003-1.035) Urine Protein Negativemg/dL (NEG,TRACE) Urine Glucose (UA) Negativemg/dL (NEGATIVE) Urine Ketones Negativemg/dL (NEGATIVE) Urine Occult Blood Negative (NEGATIVE) Urine Nitrite Negative (NEGATIVE) Urine Bilirubin Negative (NEGATIVE) Urine Urobilinogen Normalmg/dL (NORMAL) Urine Leukocyte Esterase Small (NEGATIVE) Urine RBC 0-2/hpf (0-2) Urine WBC 11-50/hpf (0-5) Urine Epithelial Cells Occasional/hpf (NONE-MOD) Urine Crystals None seen (NONE SEEN) Urine Bacteria Few/hpf (NONE-FEW) Urine Hyaline Casts None/lpf (NONE) Urine Granular Casts None seen (NONE SEEN) Urine Waxy Casts None seen (NONE SEEN) Urine Red Blood Cell Casts None seen (NONE SEEN) Urine White Blood Cell Casts None seen (NONE SEEN) Urine Mucus Present (None Seen) Urine Trichomonas None seen (NONE SEEN) Urine Yeast None (NONE SEEN) Urinalysis Comment Nn Urine Culture Reflexed Indicated Lactic Acid Level 1.3mmol/L (0.4-2.0) Test 11/18/16 17:42 11/18/16 19:15 11/18/16 19:30 11/18/16 23:50 Total Bilirubin 0.4mg/dL (0.0-1.2) Aspartate Amino Transf (AST/SGOT) 27U/L (0-50) Alanine Aminotransferase (ALT/SGPT) 39U/L (0-44) Alkaline Phosphatase 82U/L (25-150) Total Protein 6.0g/dL (6.4-8.4) Albumin 2.9g/dL (3.4-5.0) Hold Alfredo Top Tube Received (Received) Hepatitis C Antibody >11.0s/co ratio HIV (1&2) Ag and Ab, 4th Generation Non reactive (Non Reactive) Vancomycin Level Trough 12.1mcg/mL Test 11/19/16 08:35 White Blood Count 10.7th/mm3 (3.8-10.1) Red Blood Count 3.64mil/mm3 (4.40-5.80) Hemoglobin 10.1g/dL (13.8-17.2) Hematocrit 30.8% (41.0-50.0) Mean Corpuscular Volume 84.6fL (81-100) Mean Corpuscular Hemoglobin 27.7pg (27.0-35.0) Mean Corpuscular Hemoglobin Concent 32.8% (32.0-37.0) Red Cell Distribution Width 14.3% (12.3-15.4) Platelet Count 180bil/L (150-400) Neutrophils (%) (Auto) 72.8% (40-74) Lymphocytes (%) (Auto) 17.8% (14-46) Monocytes (%) (Auto) 5.5% (4-12) Eosinophils (%) (Auto) 3.4% (0-5) Basophils (%) (Auto) 0.1% (0-3) Sodium Level 139mEq/L (134-144) Potassium Level 4.2mEq/L (3.5-5.2) Chloride Level 105mEq/L (97-108) Carbon Dioxide Level 23mmol/L (18-29) Blood Urea Nitrogen 6mg/dL (6-20) Creatinine 0.52mg/dL (0.76-1.27) Estimat Glomerular Filtration Rate 200mL/min (>59) Glucose Level 101mg/dL (60-99) Calcium Level 8.0mg/dL (8.5-10.1) Procalcitonin 0.43ng/mL (0.00-0.08) Discharge Medications As needed Ibuprofen (Ibuprofen) 800 Mg Tablet 800 MG PO QID PRN PRN For Pain (Reported) Followup Plan Disposition: Pt left hospital Duran Albright MD Nov 20, 2016 13:26
== END 2016-11-19 20:02 | disposition left against medical advice (07) | DRG 720 ==
LOC: SED 23:07 → MPC 11-18 01:40
PROVIDERS: ADMIT Hospitalist; ATTEND Hospitalist
DX: A41.9 Sepsis, unspecified organism (principal); F11.10 Opioid abuse, uncomplicated; L02.511 Cutaneous abscess of right hand; F17.200 Nicotine dependence, unspecified, uncomplicated